=== PATIENT | female | born 1950 | race Caucasian/White ===

== ENCOUNTER 2025-01-20 10:14 | Outpatient (AMB) | payer MEDICARE, OTHER, SELFPAY ==
--- NOTE | 2025-01-20 10:42 | MHC.OFFWIV ---
Intake Vital Signs 01/20/25 10:43 Height 5 ft 2 in Weight 206 lb 4 oz BMI 37.7 BP 134/64 Blood Pressure Location Rt brachial Position Sitting Pulse 77 Pulse Source Pulse Oximeter Temp 98.4 F Temp Source Oral Pulse Oximetry (%) 97 Oxygen Delivery Method Room Air Intake Visit Reasons: [employer] BUG BITE on RT Calf Intake Note: Patient present with a bite right calf times 4 days. 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 - The incident occurred last Saturday while the patient was wearing tight long pants and shoes while gardening, and she did not observe a stinger or insect at the time. - Initially, there was a small floyd which was not painful, and the patient applied topical Benadryl with a bandage. - The rash developed last night and became more prominent by the morning, resembling a half [place] around the original spot. - The patient denies any itching, pain, fever, or chills associated with the rash. - There is a small bump in the center of the rash, but no visible stinger or tick was found upon examination with a magnifying glass. - She denies joint pain, fever, chills, other rashes or lesions. - She denies itching. Physical Exam General: Cooperative, healthy appearing, comfortable, no acute distress and well developed Orientation: Patient oriented x3 Respiratory: Normal respiratory effort and able to speak in complete sentences. Skin: Flat, oval, single dark red macule with clearing and flat petechial rash noted in a half [place]. Dry, not tender, not fluctuant, no streaking noted. Patient was informed and verbally consented to the use of an ambient scribe for clinic note documentation during this visit. PFSH Social History Patient Tobacco Use Status: Never used Tobacco Patient : No Review of Systems Const All systems reviewed & are unremarkable except as noted in HPI and below Physical Exam Vital Signs: Last Vital Signs Temp 98.4 F 01/20/25 10:43 Pulse 77 01/20/25 10:43 BP 134/64 01/20/25 10:43 Pulse Ox 97 01/20/25 10:43 Oxygen Delivery Method Room Air 01/20/25 10:43 BMI result Body Mass Index 37.7 Assessment & Plan Assessment & Plan (1) Rash: Code(s): R21 - Rash and other nonspecific skin eruption Plan Most likely bug bite vs sting vs pricker mercedes? vs lyme? plan - will order labs - doxycycline 100 mg BID for 7 days - follow up with PCP Orders: Orders Tick-borne Disease Molecular Today S30.860A - Insect bite (nonvenomous) of lower back and pelvis, initial encounter, W57.XXXA - Bitten or stung by nonvenomous insect and other nonvenomous arthropods, initial encounter Lyme IgG/IgM w/reflex to WB Today R21 - Rash and other nonspecific skin eruption Medications: New doxycycline hyclate 100 mg PO BID 14 tabs 0RF 7 days Coding Level of Care Code Est Pt Level 4 (33632) Diagnoses Rash R21
[2025-01-20 10:43] VITALS: BP 134/64; PULSE 77; TEMP 36.9; O2SAT 97; BMI 37.7
== END 2025-01-20 11:28 | disposition home or self-care (01) ==
PROVIDERS: PCP Internal Medicine; Visit Provider Physician Assistant Medical
DX: R21 Rash and other nonspecific skin eruption (principal)

== ENCOUNTER 2025-01-20 10:14 | Outpatient (REF) | payer MEDICARE, OTHER, SELFPAY ==
[2025-01-21 22:53] LABS: A. Phagocytphilium DNA,RT-PCR NOT DETECTED (NOT DETECTED); Babesia Microti DNA, RT-PCR NOT DETECTED (NOT DETECTED); Borrelia Miyamotoi,DNA RT-PCR NOT DETECTED (NOT DETECTED); E.Chaffeensis DNA RT-PCR NOT DETECTED (NOT DETECTED); Lyme(Borrelia ssp)DNA RT-PCR NOT DETECTED (NOT DETECTED)
[2025-01-21 23:18] LABS: Lyme Abs Screen <0.90 index
== END 2025-01-20 10:15 | disposition home or self-care (01) ==
LOC: HO.HMGCLDS 10:14
PROVIDERS: Visit Provider Physician Assistant Medical
DX: S80.861A Insect bite (nonvenomous), right lower leg, initial encounter (principal); R21 Rash and other nonspecific skin eruption; W57.XXXA Bitten or stung by nonvenomous insect and other nonvenomous arthropods, initial encounter; Y93.H2 Activity, gardening and landscaping; Y92.9 Unspecified place or not applicable; Y99.9 Unspecified external cause status
CPT/HCPCS: 36415; 86617; 86618; 87468; 87469; 87478; 87484; 87798; 99212